=== PATIENT | female | born 1975 | race Caucasian/White ===

== ENCOUNTER 2022-08-10 11:36 | Outpatient (REF) | payer OTHER, SELFPAY ==
[2022-08-10 11:56] LABS: MANUAL DIFF FLAG NO
[2022-08-10 13:00] LABS: Basophils Absolute Auto 0.1 X10*3/uL (0.0-0.2); Basophils Percent Auto 0.4 % (0-2); Eosinophils Absolute Auto 0.3 X10*3/uL (0.0-0.4); Hematocrit 40.9 % (37.0-47.0); Hemoglobin 13.4 g/dl (12.0-16.0); Imm Gran Abs Auto 0.05 X10*3/uL (0.00-0.03); Imm Gran Pct Auto 0.3 % (0.0-0.4); Lymphocytes Absolute Auto 3.4 X10*3/uL (1.2-4.9); Lymphocytes Percent Auto 23.4 % (20-40); Mean Corpuscular HGB Conc 32.8 g/dl (31.0-35.0); Mean Corpuscular Hemoglobin 27.7 pg (27.0-33.0); Mean Corpuscular Volume 84.7 fL (80.0-98.0); Mean Platelet Volume 8.5 fL (9.4-12.3); Monocytes Absolute Auto 0.6 X10*3/uL (0.1-1.2); Monocytes Percent Auto 3.8 % (2-11); Neutrophils Absolute Auto 10.3 x10*3/uL (2.0-8.3); Neutrophils Percent Auto 70.1 % (45-73); Platelet Count 350 X10*3/uL (160-400); Red Blood Count 4.83 X10*6/uL (4.20-5.50); Red Cell Distribution Width 14.6 % (11.0-16.0); White Blood Count 14.7 X10*3/uL (4.8-10.8)
[2022-08-10 13:20] LABS: Estimated Average Glucose 180 mg/dL; Hemoglobin A1c % 7.9 %
[2022-08-10 13:41] LABS: Alanine Aminotransferase 19 U/L (0-31); Albumin Level 3.8 g/dL (3.5-5.0); Alkaline Phosphatase 102 U/L (39-117); Anion Gap 14 (12-20); Aspartate Amino Transferase 13 U/L (5-31); Bilirubin Total 0.5 mg/dL (0.0-1.0); Blood Urea Nitrogen 10 mg/dL (9-16); Carbon Dioxide 26 mmol/L (22-29); Chloride 102 mmol/L (96-108); Cholesterol 244 mg/dL; Estimated Glomerular Filt Rate > 60; Glucose Random 164 mg/dL (60-115); HDL Cholesterol 35 mg/dL; LDL Cholesterol Calculated 181 mg/dl; Potassium 4.7 mmol/L (3.3-5.1); Sodium 137 mmol/L (135-145); Triglycerides 141 mg/dL
[2022-08-10 14:49] LABS: Creatinine Urine 155.45 mg/dL; Microalbum/Creatinine Ratio Ur 7.7 ug/mg cr
== END 2022-08-10 11:37 | disposition home or self-care (01) ==
LOC: HO.LAB 11:36
PROVIDERS: PCP Internal Medicine; Visit Provider Internal Medicine
DX: Z00.00 Encounter for general adult medical examination without abnormal findings (principal); E11.65 Type 2 diabetes mellitus with hyperglycemia; R53.83 Other fatigue; E78.2 Mixed hyperlipidemia; I10 Essential (primary) hypertension
CPT/HCPCS: 36415; 80053; 80061; 82043; 83036; 84443; 85025

== ENCOUNTER 2023-05-24 17:00 | Outpatient (RCR) | payer OTHER, SELFPAY | END 2023-07-04 13:54 | disposition home or self-care (01) | LOC: HO.PT 17:00 | PROVIDERS: PCP Internal Medicine; Visit Provider Internal Medicine | DX: M54.12 Radiculopathy, cervical region (principal) | CPT/HCPCS: 97110; 97140; 97161 ==

== ENCOUNTER 2023-08-30 15:44 | Outpatient (REF) | payer OTHER, SELFPAY ==
--- NOTE | ~2023-08-30 | MM_ITS ---
EXAMINATION: MM SCREENING DIGITAL BREAST TOMOSYNTHESIS, BILATERAL CLINICAL INFORMATION: Screening. Asymptomatic. COMPARISON: Mammography: There are no prior mammograms for comparison. TECHNIQUE: Digital breast tomosynthesis is performed in both the craniocaudal and mediolateral oblique views along with computer-aided detection (CAD). Synthesized 2D images are generated from the tomosynthesis. FINDINGS: There are scattered areas of fibroglandular density (ACR BI-RADS breast composition Category b). There are no significant masses, abnormal calcifications, or other abnormalities. MM/MM tomosynthesis screening BI IMPRESSION: No mammographic evidence of malignancy. ASSESSMENT: BI-RADS BI-RADS 1 - Negative RECOMMENDATION: Routine annual mammography screening. 1 year F/U This examination should not preclude the clinical evaluation of a suspicious palpable abnormality. This patient's information was entered into a reminder system with a target due date for their next mammogram.
== END 2023-08-30 15:45 | disposition home or self-care (01) ==
LOC: HO.MAMMO 15:44
PROVIDERS: PCP Internal Medicine; Visit Provider Internal Medicine
DX: Z12.31 Encounter for screening mammogram for malignant neoplasm of breast (principal)
CPT/HCPCS: 77063; 77067

== ENCOUNTER → 2023-08-30 16:00 | Outpatient (BNV) | payer OTHER, SELFPAY | PROVIDERS: PCP Internal Medicine; Visit Provider Radiology Diagnostic Radiology | DX: Z12.31 Encounter for screening mammogram for malignant neoplasm of breast (principal) | CPT/HCPCS: 77063; 77067 ==

== ENCOUNTER 2025-02-28 16:13 | Outpatient (REF) | payer OTHER, SELFPAY ==
--- OUTSIDE RECORDS SUMMARY | 2024-12-31 11:00 | XMS_ITS ---
Author Organization [facility] Address [address] [place], [place] [phone] Care Team Providers Care Public Health Physician Name Role Phone LISANDRA BOYD Primary Care Provider REASON FOR VISIT 37/ DM follow up Encounters Encounter Location Date Provider Diagnosis [facility] [address] [place] [address] 12/31/2024 LISANDRA BOYD PLAN OF TREATMENT Next Appt Details Provider Name:LISANDRA BOYD , 05/21/2025 04:00:00 PM, [address] [place], [address],
--- OUTSIDE RECORDS SUMMARY | 2025-01-30 06:56 | XMS_ITS ---
Author Organization [facility] Address [address] [place], [place] [id number] Care Team Providers Care Embossing Machine Tender Name Role Phone LISANDRA BOYD Primary Care Provider REASON FOR VISIT made follow up appt Encounters Encounter Location Date Provider Diagnosis [facility] [address] [place] [address] 01/30/2025 LISANDRA BOYD PLAN OF TREATMENT Next Appt Details Provider Name:LISANDRA BOYD , 05/21/2025 04:00:00 PM, [address] [place], [address],
--- OUTSIDE RECORDS SUMMARY | 2025-01-31 08:33 | XMS_ITS ---
Author Organization [facility] Address [address] [place], [place] [phone] Care Team Providers Care Catheter Builder Name Role Phone LISANDRA BOYD Primary Care Provider REASON FOR VISIT Blood Sugar Encounters Encounter Location Date Provider Diagnosis [facility] [address] [place] [address] 01/31/2025 LISANDRA BOYD PLAN OF TREATMENT Next Appt Details Provider Name:LISANDRA BOYD , 05/21/2025 04:00:00 PM, [address] [place], [address],
--- OUTSIDE RECORDS SUMMARY | 2025-02-01 11:25 | XMS_ITS ---
Author Organization [facility] Address [address] [place], [place] [phone] Care Team Providers Care Master Fisher Name Role Phone LISANDRA BOYD Primary Care Provider REASON FOR VISIT Ozempic Refill Encounters Encounter Location Date Provider Diagnosis [facility] [address] [place] [address] 02/01/2025 LISANDRA BOYD PLAN OF TREATMENT Next Appt Details Provider Name:LISANDRA BOYD , 05/21/2025 04:00:00 PM, [address] [place], [address],
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
--- OUTSIDE RECORDS SUMMARY | 2025-02-05 00:02 | XMS_ITS ---
Author Organization [facility] Address [address] [place], [place] [phone] Care Team Providers Care Nursing Support Worker Name Role Phone LISANDRA BOYD Primary Care Provider REASON FOR VISIT (FYI) Lab Encounters Encounter Location Date Provider Diagnosis [facility] [address] [place] [address] 02/05/2025 LISANDRA BOYD PLAN OF TREATMENT Next Appt Details Provider Name:LISANDRA BOYD , 05/21/2025 04:00:00 PM, [address] [place], [address],
--- OUTSIDE RECORDS SUMMARY | 2025-02-06 06:43 | XMS_ITS ---
Author Organization [facility] Address [address] [place], [place] [phone] Care Team Providers Care Parts Cataloger Name Role Phone LISANDRA BOYD Primary Care Provider REASON FOR VISIT Question about glucose monitor Encounters Encounter Location Date Provider Diagnosis [facility] [address] [place] [address] 02/06/2025 LISANDRA BOYD PLAN OF TREATMENT Next Appt Details Provider Name:LISANDRA BOYD , 05/21/2025 04:00:00 PM, [address] [place], [address],
--- OUTSIDE RECORDS SUMMARY | 2025-02-06 09:07 | XMS_ITS ---
Author Organization [facility] Address [address] [place], [place] [phone] Care Team Providers Care It Professional Name Role Phone LISANDRA BOYD Primary Care Provider REASON FOR VISIT RE:Question about glucose monitor Encounters Encounter Location Date Provider Diagnosis [facility] [address] [place] [address] 02/06/2025 LISANDRA BOYD PLAN OF TREATMENT Next Appt Details Provider Name:LISANDRA BOYD , 05/21/2025 04:00:00 PM, [address] [place], [address],
--- OUTSIDE RECORDS SUMMARY | 2025-02-06 11:22 | XMS_ITS ---
Author Organization [facility] Address [address] [place], [place] [phone] Care Team Providers Care Kitchen Hand Name Role Phone LISANDRA BOYD Primary Care Provider REASON FOR VISIT RE:Question about glucose monitor MEDICATIONS Medication SIG (Take, Route, Fr equency, Duration) Notes Start Date End Date Status Dexcom G6 Transmitter - as directed appl ied to skin every 90 days for 90 days 02/06/2025 Active Dexcom G6 Sensor - as directed applied to skin every 10 days for 30 day(s) 02/06/2025 Acti ve Dexcom G6 Independent Living Advisor - as directed applied to skin daily for 365 days 02/06/2025 Active Encounters Encounter Location Date Provider Diagnosis [facility] [address] [place] [address] 02/06/2025 LISANDRA BOYD PLAN OF TREATMENT Medication Medication Name Sig Start Date Stop Date Notes Dexcom G6 Transmitter - as directed appl ied to skin every 90 days for 90 days 02/06/2025 Dexcom G6 Sensor - as directed applied to skin every 10 days for 30 day(s) 02/06/2025 Dexcom G6 Independent Living Advisor - as directed applied to skin daily for 365 days 02/06/2025 Next Appt Details Provider Name:LISANDRA BOYD , 05/21/2025 04:00:00 PM, [address] [place], [address],
--- OUTSIDE RECORDS SUMMARY | 2025-02-11 07:06 | XMS_ITS ---
Author Organization [facility] Address [address] [place], [place] [phone] Care Team Providers Care Forensic Accountant Name Role Phone LISANDRA BOYD Primary Care Provider REASON FOR VISIT fax last chart notes Encounters Encounter Location Date Provider Diagnosis [facility] [address] [place] [address] 02/11/2025 LISANDRA BOYD PLAN OF TREATMENT Next Appt Details Provider Name:LISANDRA BOYD , 05/21/2025 04:00:00 PM, [address] [place], [address],
--- OUTSIDE RECORDS SUMMARY | 2025-02-28 18:36 | XMS_ITS | Continuity of Care Document ---
Author Organization [facility] Address [address] [place] [id number] Problems Condition ICD9 code ICD10 code SNOMED code Start Date End Date S tatus Encounter for screening for other metabolic disorders Z13.228 Results No Results Allergies, adverse reactions, alerts No known allergies and adverse reactions Medications No administered medications reported Vital Signs No vital signs reported Social History No smoking Hx information available
--- OUTSIDE RECORDS SUMMARY | 2025-02-28 18:36 | XMS_ITS | Patient Health Record ---
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 Role Phone LISANDRA BOYD Primary Care Provider [place], NURSING Unavailable [phone] ALLERGIES Allergen (clinical drug ingredient) Drug/Non Drug Allergy documented on EMR Reaction Allergy Type Onset Date Status bupropion Wellbutrin SR severe constipation Drug Allergy Active REASON FOR REFERRAL Reason Appt PT eval and ángel at Diagnosis 1 Cervical radiculopat hy (M54.12) Referral Organization [facility] Referring Provider First Name LISANDRA Referring Provider Last Name OLIVER Referring Provider Speciality Internal M edicine Referred Provider Specialty Physical The rapy Referral Priority Routine MEDICATIONS Medication SIG (Take, Route, Frequency, Duration) Notes Start Date End Date Status Adderall XR 20 MG 1 capsule in the mor servando Orally Once a day in am Active Naproxen 500 MG 1 tablet with food o r milk as needed Orally every 12 hrs Active Adderall 10 MG 1 tablet Orally once a day in afternoon Active tiZANidine HCl 2 MG 1 - 2 tablets as nee ded Orally at bedtime for 15 day(s) 01/28/2023 Active Dexcom G6 Transmitter - as directed appl ied to skin every 90 days for 90 days 02/06/2025 Active Dexcom G6 Sensor - as directed applied to skin every 10 days for 30 day(s) 02/06/2025 Active Dexcom G6 Billing Rep - as directed applied to skin daily for 365 days 02/06/2025 Active clonazePAM 0.5 MG 1 tablet as needed O rally Once a day Active Escitalopram Oxalate 5 MG 1 tablet Orall y Once a day WITH the 20 mg tablet Active OneTouch Delica Plus [id number] 33 gauge apply by [facility]Non-Drug; Combo Route) route once test 3 times a day as directed MISCELLANEOUS once a day for 90 days 06/25/2021 Active LORazepam 0.5 MG 1 tablet at bedtime as needed Orally Once a day Active OneTouch Verio apply 1 Drop by [facility]Non-Drug; Combo Route) route 3 times every day as directed by physician In Vitro 06/25/2021 Active Ozempic (1 MG/DOSE) 4 MG/3ML 1 mg Subcutaneous every 7 days for 84 days 10/03/2023 Active Albuterol Sulfate HFA 108 (90 Base) MCG/ACT inhale 2 puff by inhalation route every 4 - 6 hours as needed Inhalation 06/25/2021 Active Atenolol 50 MG 1 1/2 tablets Orally Once a day Active Atorvastatin Calcium 40 MG 1 tablet Orally Once a day Active Escitalopram Oxalate 20 MG 1 tablet Oral Once a day WITH the 5mg tablet 07/13/2022 Active IMMUNIZATIONS Vaccine Route Administration Date Status Comme nts Influenza, Flublok IM Intramuscular 03/06/2024 Administere d Influenza, Flublok IM Intramuscular 02/04/2025 Administere d Td (Tetanus Diphtheria) Unknown 10/03/2008 Administered SOCIAL HISTORY Tobacco Use: Social History Observation Description Date Details (start date - stop date) Former Smoker NA - NA Sex Assigned At : Social History Observation Description Sex Assigned At Unknown Smoking Question Answer Notes Are you a: former smoker How long has it been since you last smoked? > 10 years PROBLEMS Problem Type ICD Code Onset Dates Problem Status W/U Status Risk SNOMED Code Notes Problem Cervical radiculopathy (M54.12) Active confirmed 43828711 Problem Mixed hyperlipidemia (E78.2) Active confirmed 613013829 Problem Type 2 diabetes mellitus with hyperglycemia (E11.65) Active confirmed Hyperglycemia due to type 2 diabetes mellitus (190625925821191 ) Problem Morbid obesity (E66.01) Active confirmed 367993286 Problem Anxiety, generalized (F41.1) Active confirmed 73640975 Problem Degenerative lumbar disc (M51.36) Active confirmed 05040013 Problem Poor concentration (R41.840) Active confirmed 51522571 Problem Urinary incontinence without sensory awareness (N39.42) Active confirmed 475469598 Problem Adult ADHD (F90.9) Active confirmed 444 610614 Problem Essential (primary) hypertension (I10) 06/16/19 10 Active confirmed Essential hypertension (53220998) VITAL SIGNS Blood pressure diastolic 80 mm Hg 02/04/2025 Height 65.50 in 02/04/2025 Blood pressure systolic 128 mm Hg 02/04/2025 Weight 263.6 lbs 02/04/2025 BMI 43.19 kg/m2 02/04/2025 Encounters Encounter Location Date Provider Diagnosis [address] [address] 03/06/2024 LISANDRA SHERWOOD Type 2 diabetes mellitus with hyperglycemia E11.65 ; Morbid obesity E66.01 ; Essential (primary) hypertension I10 ; Anxiety, generalized F41.1 and Encounter for immunization Z23 [address] [address] 03/07/[address] [address] 03/26/[address] [address] 03/29/[address] [address] 04/03/[address] [address] 04/05/2024 LISANDRA SHERWOOD Cervical radiculopat hy M54.12 ; Type 2 diabetes mellitus with hyperglycemia E11.65 ; Essential (primary) hypertension I10 and Anxiety, generalized F41.[address] [address] 04/09/[address] [address] 04/17/[address] [address] 04/19/[address] [address] 04/23/[address] [address] 04/24/2024 [address] [place] [address] 04/26/2024 [facility] [address] [place] [address] 04/26/2024 [facility] [address] [place] [address] 04/26/2024 [facility] Pain in right hand M79.641 ; Cervical radiculopathy M54.12 and Essential (primary) hypertension I10 [facility] [address] [place] [address] 05/01/2024 [facility] [address] [place] [address] 05/11/2024 [facility] [address] [place] [address] 05/11/2024 [facility] Right hand pain M79.641 [facility] [address] [place] [address] 06/06/2024 [facility] [address] [place] [address] 06/06/2024 [facility] [address] [place] [address] 06/08/2024 [facility] [address] [place] [address] 06/13/2024 [facility] [address] [place] [address] 06/25/2024 [facility] Type 2 diabetes mellitus with hyperglycemia E11.65 [facility] [address] [place] [address] 07/23/2024 [facility] Type 2 diabetes mellitus with hyperglycemia E11.65 ; Essential (primary) hypertension I10 ; Cervical radiculopathy M54.12 and Mixed hyperlipidemia E78.2 [facility] [address] [place] [address] 08/13/2024 [facility] [address] [place] [address] 08/14/2024 [facility] [address] [place] [address] 09/11/2024 [facility] [address] [place] [address] 09/12/2024 [facility] [address] [place] [address] 09/12/2024 [facility] [address] [place] [address] 09/12/2024 [facility] [address] [place] [address] 09/13/2024 LISANDRA SHERWOOD Type 2 diabetes mellitus with hyperglycemia E11.65 ; Essential (primary) hypertension I10 ; Left foot pain M79.672 ; Mixed hyperlipidemia E78.2 and Cervical radiculopathy M54.12 [facility] [address] [place] [address] 09/13/2024 [facility] [address] [place] [address] 09/16/2024 [facility] [address] [place] [address] 10/18/2024 [facility] [address] [place] [address] 10/19/2024 [facility] [address] [place] [address] 10/27/2024 [facility] Type 2 diabetes mellitus with hyperglycemia E11.65 [facility] [address] [place] [address] 10/31/2024 [facility] [address] [place] [address] 10/31/2024 [facility] [address] [place] [address] 11/01/2024 [facility] [address] [place] [address] 11/02/2024 LISANDRA SHERWOOD Essential (primary) hypertension I10 ; Cervical radiculopathy M54.12 and Left foot pain M79.672 [facility] [address] [place] [address] 11/02/2024 LISANDRA SHERWOOD Type 2 diabetes mellitus with hyperglycemia E11.65 ; Essential (primary) hypertension I10 ; Cervical radiculopathy M54.12 and Left foot pain M79.[address] [address] 11/15/2024 [facility] Type 2 diabetes mellitus with hyperglycemia E11.[address] [address] 12/27/[address] [address] 12/27/[address] [address] 12/31/[address] [address] 01/30/[address] [address] 01/31/[address] [address] 02/01/[address] [address] 02/04/2025 [facility] Type 2 diabetes mellitus with hyperglycemia E11.65 ; Essential (primary) hypertension I10 ; Mixed hyperlipidemia E78.2 ; Anxiety, generalized F41.1 and Encounter for immunization Z23 [address] [address] 02/05/[address] [address] 02/06/[address] [address] 02/06/[address] [address] 02/06/[address] [address] 02/11/2025 [facility] ASSESSMENTS Encounter Date Diagnosis Assessment Notes Treatment Notes Treatment Clinical Notes Section Notes 03/06/2024 Type 2 diabetes mellitus with hyperglycemia (ICD-10 - E11.65) 1. Diabetes/obesity : She has lost 12 pounds thus far with Ozempic. Continue present dosing. Will update A1c today and consider bumping to the 2 mg strength if needed 2. Hypertension: Stable on current atenolol. No changes made today 3. Generalized anxiety: Stable with Lexapro and Adderall. Continue same 4. Flu shot given today 03/06/2024 Morbid obesity (ICD-10 - E66.01) 1. Diabetes/obesity : She has lost 12 pounds thus far with Ozempic. Continue present dosing. Will update A1c today and consider bumping to the 2 mg strength if needed 2. Hypertension: Stable on current atenolol. No changes made today 3. Generalized anxiety: Stable with Lexapro and Adderall. Continue same 4. Flu shot given today 04/05/2024 Cervical radiculopathy (ICD-10 - M54.12) 1. Cervical radiculopathy:wi ll Rx short term Dexamethasone . If not having lasting benefit will consider PT and eventual MRI 2. Diabetes: Cautioned sugar will rise on steroids Attention to diet 3. Hypertension :stable on presnet Rx : ECG today 3. Anxiety Working with Psychiatry on med adjustment 04/05/2024 Type 2 diabetes mellitus with hyperglycemia (ICD-10 - E11.65) 1. Cervical radiculopathy:wi ll Rx short term Dexamethasone . If not having lasting benefit will consider PT and eventual MRI 2. Diabetes: Cautioned sugar will rise on steroids Attention to diet 3. Hypertension :stable on presnet Rx : ECG today 3. Anxiety Working with Psychiatry on med adjustment 04/26/2024 Cervical radiculopathy (ICD-10 - M54.12) 1. Pain in right hand: Question inflammatory arthritis. Will check an x-ray and labs including inflammatory markers and uric acid. She also requested a Lyme test 2. Cervical radiculopathy: Stressed the importance of getting some PT if we are qualify her for an MRI. Reviewed this again with the patient today 3. Hypertension: Mildly elevated. Has been better most recent visits. Will maintain present medication and recheck at scheduled follow-up 04/26/2024 Pain in right hand (ICD-10 - M79.641) 1. Pain in right hand: Question inflammatory arthritis. Will check an x-ray and labs including inflammatory markers and uric acid. She also requested a Lyme test 2. Cervical radiculopathy: Stressed the importance of getting some PT if we are qualify her for an MRI. Reviewed this again with the patient today 3. Hypertension: Mildly elevated. Has been better most recent visits. Will maintain present medication and recheck at scheduled follow-up 05/11/2024 Right hand pain (ICD-10 - M79.641) 06/25/2024 Type 2 diabetes mellitus with hyperglycemia (ICD-10 - E11.65) 07/23/2024 Essential (primary) hypertension (ICD-10 - I10) 1. Diabetes: Patient has only been on current Ozempic 3 weeks. Will wait till next visit to reassess A1c. 2. Hypertension: Well-controlled on present atenolol. No changes made today 3. Cervical radiculopathy: Explained we cannot get an MRI until she has done more recent physical therapy. Gave her a new referral to go to [facility] today. Will reassess in a month 4. Hyperlipidemia: We will update profile on atorvastatin at next visit 07/23/2024 Type 2 diabetes mellitus with hyperglycemia (ICD-10 - E11.65) 1. Diabetes: Patient has only been on current Ozempic 3 weeks. Will wait till next visit to reassess A1c. 2. Hypertension: Well-controlled on present atenolol. No changes made today 3. Cervical radiculopathy: Explained we cannot get an MRI until she has done more recent physical therapy. Gave her a new referral to go to [facility] today. Will reassess in a month 4. Hyperlipidemia: We will update profile on atorvastatin at next visit 09/13/2024 Essential (primary) hypertension (ICD-10 - I10) 1. Diabetes: We will update A1c on current Ozempic. Continue with the 1 mg dose at present 2. Hypertension: Stable on present atenolol. Will continue present dosing 3. Left foot pain: Appears in part due to cracked skin and excoriation: Discussed trial of Kerasol overnight foot cream 4. Cervical radiculopathy: Renewed tizanidine. 09/13/2024 Type 2 diabetes mellitus with hyperglycemia (ICD-10 - E11.65) 1. Diabetes: We will update A1c on current Ozempic. Continue with the 1 mg dose at present 2. Hypertension: Stable on present atenolol. Will continue present dosing 3. Left foot pain: Appears in part due to cracked skin and excoriation: Discussed trial of Kerasol overnight foot cream 4. Cervical radiculopathy: Renewed tizanidine. 10/27/2024 Type 2 diabetes mellitus with hyperglycemia (ICD-10 - E11.65) 11/02/2024 Essential (primary) hypertension (ICD-10 - I10) 11/02/2024 Type 2 diabetes mellitus with hyperglycemia (ICD-10 - E11.65) 11/15/2024 Type 2 diabetes mellitus with hyperglycemia (ICD-10 - E11.65) 02/04/2025 Essential (primary) hypertension (ICD-10 - I10) 1. Type 2 diabetes mellitus: We will update A1c but is suspect will be poor based on absence of medication for several months. Will resume Ozempic today and plan to reassess in March 2. Hypertension: Stable on current atenolol. No changes made today 3. Hyperlipidemia: Stable on current atorvastatin. Will continue same 4. Anxiety: She continues to work with psychiatry feels her current medication regimen is sufficient. Lexapro was reportedly increased to 25 mg due to recent stress 02/04/2025 Type 2 diabetes mellitus with hyperglycemia (ICD-10 - E11.65) 1. Type 2 diabetes mellitus: We will update A1c but is suspect will be poor based on absence of medication for several months. Will resume Ozempic today and plan to reassess in March 2. Hypertension: Stable on current atenolol. No changes made today 3. Hyperlipidemia: Stable on current atorvastatin. Will continue same 4. Anxiety: She continues to work with psychiatry feels her current medication regimen is sufficient. Lexapro was reportedly increased to 25 mg due to recent stress 03/06/2024 Essential (primary) hypertension (ICD-10 - I10) 1. Diabetes/obesity : She has lost 12 pounds thus far with Ozempic. Continue present dosing. Will update A1c today and consider bumping to the 2 mg strength if needed 2. Hypertension: Stable on current atenolol. No changes made today 3. Generalized anxiety: Stable with Lexapro and Adderall. Continue same 4. Flu shot given today 04/05/2024 Essential (primary) hypertension (ICD-10 - I10) 1. Cervical radiculopathy:wi ll Rx short term Dexamethasone . If not having lasting benefit will consider PT and eventual MRI 2. Diabetes: Cautioned sugar will rise on steroids Attention to diet 3. Hypertension :stable on presnet Rx : ECG today 3. Anxiety Working with Psychiatry on med adjustment 04/26/2024 Essential (primary) hypertension (ICD-10 - I10) 1. Pain in right hand: Question inflammatory arthritis. Will check an x-ray and labs including inflammatory markers and uric acid. She also requested a Lyme test 2. Cervical radiculopathy: Stressed the importance of getting some PT if we are qualify her for an MRI. Reviewed this again with the patient today 3. Hypertension: Mildly elevated. Has been better most recent visits. Will maintain present medication and recheck at scheduled follow-up 07/23/2024 Cervical radiculopathy (ICD-10 - M54.12) 1. Diabetes: Patient has only been on current Ozempic 3 weeks. Will wait till next visit to reassess A1c. 2. Hypertension: Well-controlled on present atenolol. No changes made today 3. Cervical radiculopathy: Explained we cannot get an MRI until she has done more recent physical therapy. Gave her a new referral to go to [facility] today. Will reassess in a month 4. Hyperlipidemia: We will update profile on atorvastatin at next visit 09/13/2024 Left foot pain (ICD-10 - M79.672) 1. Diabetes: We will update A1c on current Ozempic. Continue with the 1 mg dose at present 2. Hypertension: Stable on present atenolol. Will continue present dosing 3. Left foot pain: Appears in part due to cracked skin and excoriation: Discussed trial of Kerasol overnight foot cream 4. Cervical radiculopathy: Renewed tizanidine. 11/02/2024 Cervical radiculopathy (ICD-10 - M54.12) 11/02/2024 Essential (primary) hypertension (ICD-10 - I10) 02/04/2025 Mixed hyperlipidemia (ICD-10 - E78.2) 1. Type 2 diabetes mellitus: We will update A1c but is suspect will be poor based on absence of medication for several months. Will resume Ozempic today and plan to reassess in March 2. Hypertension: Stable on current atenolol. No changes made today 3. Hyperlipidemia: Stable on current atorvastatin. Will continue same 4. Anxiety: She continues to work with psychiatry feels her current medication regimen is sufficient. Lexapro was reportedly increased to 25 mg due to recent stress 03/06/2024 Anxiety, generalized (ICD-10 - F41.1) 1. Diabetes/obesity : She has lost 12 pounds thus far with Ozempic. Continue present dosing. Will update A1c today and consider bumping to the 2 mg strength if needed 2. Hypertension: Stable on current atenolol. No changes made today 3. Generalized anxiety: Stable with Lexapro and Adderall. Continue same 4. Flu shot given today 04/05/2024 Anxiety, generalized (ICD-10 - F41.1) 1. Cervical radiculopathy:wi ll Rx short term Dexamethasone . If not having lasting benefit will consider PT and eventual MRI 2. Diabetes: Cautioned sugar will rise on steroids Attention to diet 3. Hypertension :stable on presnet Rx : ECG today 3. Anxiety Working with Psychiatry on med adjustment 07/23/2024 Mixed hyperlipidemia (ICD-10 - E78.2) 1. Diabetes: Patient has only been on current Ozempic 3 weeks. Will wait till next visit to reassess A1c. 2. Hypertension: Well-controlled on present atenolol. No changes made today 3. Cervical radiculopathy: Explained we cannot get an MRI until she has done more recent physical therapy. Gave her a new referral to go to [facility] today. Will reassess in a month 4. Hyperlipidemia: We will update profile on atorvastatin at next visit 09/13/2024 Mixed hyperlipidemia (ICD-10 - E78.2) 1. Diabetes: We will update A1c on current Ozempic. Continue with the 1 mg dose at present 2. Hypertension: Stable on present atenolol. Will continue present dosing 3. Left foot pain: Appears in part due to cracked skin and excoriation: Discussed trial of Kerasol overnight foot cream 4. Cervical radiculopathy: Renewed tizanidine. 11/02/2024 Left foot pain (ICD-10 - M79.672) 11/02/2024 Cervical radiculopathy (ICD-10 - M54.12) 02/04/2025 Anxiety, generalized (ICD-10 - F41.1) 1. Type 2 diabetes mellitus: We will update A1c but is suspect will be poor based on absence of medication for several months. Will resume Ozempic today and plan to reassess in March 2. Hypertension: Stable on current atenolol. No changes made today 3. Hyperlipidemia: Stable on current atorvastatin. Will continue same 4. Anxiety: She continues to work with psychiatry feels her current medication regimen is sufficient. Lexapro was reportedly increased to 25 mg due to recent stress 03/06/2024 Encounter for immunization (ICD-10 - Z23) VIS sheet provided to patient influenza vaccine administered patient counseled 1. Diabetes/obesity : She has lost 12 pounds thus far with Ozempic. Continue present dosing. Will update A1c today and consider bumping to the 2 mg strength if needed 2. Hypertension: Stable on current atenolol. No changes made today 3. Generalized anxiety: Stable with Lexapro and Adderall. Continue same 4. Flu shot given today 09/13/2024 Cervical radiculopathy (ICD-10 - M54.12) 1. Diabetes: We will update A1c on current Ozempic. Continue with the 1 mg dose at present 2. Hypertension: Stable on present atenolol. Will continue present dosing 3. Left foot pain: Appears in part due to cracked skin and excoriation: Discussed trial of Kerasol overnight foot cream 4. Cervical radiculopathy: Renewed tizanidine. 11/02/2024 Left foot pain (ICD-10 - M79.672) 02/04/2025 Encounter for immunization (ICD-10 - Z23) VIS sheet provided to patient influenza vaccine administered patient counseled 1. Type 2 diabetes mellitus: We will update A1c but is suspect will be poor based on absence of medication for several months. Will resume Ozempic today and plan to reassess in March 2. Hypertension: Stable on current atenolol. No changes made today 3. Hyperlipidemia: Stable on current atorvastatin. Will continue same 4. Anxiety: She continues to work with psychiatry feels her current medication regimen is sufficient. Lexapro was reportedly increased to 25 mg due to recent stress PLAN OF TREATMENT Pending Test Test Name Order Date XR Hand Right 2 views 04/26/2024 Future Test Test Name Order Date Hemoglobin [id number] 11/15/2024 [id number] 11/15/2024 Next Appt Details Provider Name:LISANDRA BOYD , 05/21/2025 04:00:00 PM, [address] [facility], [place], [address], Insurance Providers Payer Name Payer Address Payer Phone Subscriber Number Group Number Insured Name Patient Relationship to Insured Coverage Start Date Coverage End Date [facility] [address] [place], [place] [id number] [phone] [id number] BOB AWAD Self - patient is the insured [employer] [address] [place] [address] [id number] BOB AWAD Self - patient is the insured 0 [employer] [address] [place] [address] [id number] BOB AWAD Self - patient is the insured 7 MEDICAL (GENERAL) HISTORY Medical History History ICD Code Elevated lipids, Hypertension, Diabetes, OCD - 07/05/24 - dx by Nevaeh Womack Surgical History Surgery Date(Month/Year) Displaced L pinky finger repair Med_system:musculoskeletal, Sx_Procedure : Arthrocentesis of the right shoulder joint
== END 2025-02-28 16:14 | disposition home or self-care (01) ==
LOC: HO.MAMMO 16:13
PROVIDERS: PCP Internal Medicine; Visit Provider Internal Medicine
DX: Z12.31 Encounter for screening mammogram for malignant neoplasm of breast (principal)
CPT/HCPCS: 77063; 77067

== ENCOUNTER → 2025-02-28 16:15 | Outpatient (BNV) | payer OTHER, SELFPAY | PROVIDERS: PCP Internal Medicine; Visit Provider Internal Medicine | DX: Z12.31 Encounter for screening mammogram for malignant neoplasm of breast (principal) | CPT/HCPCS: 77063; 77067 ==